=== PATIENT | male | born 1945 | race Hispanic/Latino ===

== ENCOUNTER 2017-02-12 13:49 | Inpatient (IN) | payer MEDICAID, SELFPAY ==
[2017-02-12] MEDS ORDERED: cloNIDine HCl 0.1 MG TAB ONE (14:18)
[2017-02-12] MEDS ORDERED: Oxymetazoline HCl 0.05% ( 15 ML ) ONE (15:03)
[2017-02-12 16:26] LABS: #Eosinphils 0.1 thou/uL (0.0-0.7); #Lymphocytes 1.2 thou/uL (1.20-3.40); #Monocytes 0.8 thou/uL (0.11-0.59); #Neutrophils 9.8 thou/uL (1.40-6.50); %Basophils 0.1 % (0.0-1.0); %Eosinophils 0.5 % (0.0-10.0); %Lymphocytes 9.9 % (21.0-51.0); Hematocrit 48.3 % (42.0-52.0); Mean Platelet Volume 9.1 fL (7.4-10.4); Red Blood Cell (RBC) Count 5.21 mill/uL (4.70-6.10); White Blood Cell (WBC) Count 11.9 thou/uL (4.8-10.8)
[2017-02-12 16:35] LABS: PTT 33.7 SEC (22.9-36.1); Prothrombin Time 16.3 SEC (12.0-14.7)
[2017-02-12 16:49] LABS: ALT (SGPT) 23 U/L (8-55); AST (SGOT) 25 U/L (5-34); Alkaline Phosphatase 96 U/L (40-150); Anion Gap 13 mmol/L (10-20); BUN (Urea Nitrogen) 22 mg/dL (8.4-25.7); Bilirubin, Total 0.4 mg/dL (0.2-1.2); CK (CPK) 112 U/L (30-200); Calc. Creatinine Clearance 0 mL/min (70-130); Calcium 8.6 mg/dL (7.8-10.44); Carbon Dioxide 22 mmol/L (23-31); Chloride 108 mmol/L (98-107); Estimated GFR-MDRD 71; Globulin 3.4 g/dL (2.4-3.5); Protein, Total 7.1 g/dL (5.8-8.1)
[2017-02-12 16:51] LABS: Troponin I Less than 0.010 ng/mL (< 0.028)
--- NOTE | 2017-02-12 18:26 | HP ---
REASON FOR ADMISSION: Hypertensive emergency and epistaxis. HISTORY OF PRESENT ILLNESS: The patient gives history of bleeding from his right nostril from 12 noon. This was profuse initially. He states he has started taking his blood pressure medications from the last 15 days and he is compliant with it. The at bedside shows me the bottles of medications that he has been taking. He has no complaints of chest pain, palpitation, PND, or orthopnea. Has not had any prior cardiac workup. He states he was diagnosed with hypertension 2 weeks back when he had similar episode of bleeding from his nose. PAST MEDICAL AND SURGICAL HISTORY: Hypertension from last 2 weeks with prior episode of hemoptysis 2 weeks back. No prior surgeries. CURRENT MEDICATIONS: Lisinopril 40 mg p.o. daily, Lopressor 50 mg p.o. twice daily. ALLERGIES: No known drug allergies. PERSONAL HISTORY: Does not abuse alcohol or drugs. No history of smoking. FAMILY HISTORY: Mother lived up to 78 years and father lived up to 76 years, they both of old age per patient. REVIEW OF SYSTEMS: The following complete review of systems was negative, unless otherwise mentioned in the HPI or below: Constitutional: Weight loss or gain, ability to conduct usual activities. Skin: Rash, itching. Eyes: Double vision, pain. ENT/Mouth: Nose bleeding, neck stiffness, pain, tenderness. Cardiovascular: Palpitations, dyspnea on exertion, orthopnea. Respiratory: Shortness of breath, wheezing, cough, hemoptysis, fever or night sweats. Gastrointestinal: Poor appetite, abdominal pain, heartburn, nausea, vomiting, constipation, or diarrhea. Genitourinary: Urgency, frequency, dysuria, nocturia. Musculoskeletal: Pain, swelling. Neurologic/Psychiatric: Anxiety, depression. Allergy/Immunologic: Skin rash, bleeding tendency. PHYSICAL EXAMINATION: GENERAL: The patient is a 71-year-old male who is currently not in any distress. His right nostril has been packed. VITAL SIGNS: Blood pressure on arrival was 226/125, pulse 86 per minute which is dipping down to 50s at present, respiratory rate 18 per minute, temperature 98 degrees Fahrenheit, saturating 98% on room air. NECK: Supple, no elevated JVD. EYES: Extraocular muscles intact. Pupils reacting to light. ORAL CAVITY: Mucous membranes are moist. No exudates or congestion. NOSE: Right nostril is packed. It is not bleeding currently. There is no postnasal bleed seen. CARDIOVASCULAR SYSTEM: S1, S2 heard. RESPIRATORY SYSTEM: Air entry 1+ bilaterally. No rales or rhonchi. ABDOMEN: Soft, bowel sounds heard. No tenderness, rigidity or guarding. EXTREMITIES: No peripheral edema or calf tenderness. VASCULAR SYSTEM: Peripheral pulses 1+ bilateral. No ischemic ulcerations or gangrene. CENTRAL NERVOUS SYSTEM: No gross focal deficits seen. Patient is alert, awake , oriented x3. PSYCHIATRIC SYSTEM: The patient's mood is euthymic. No hallucinations or delusions. LABORATORY DATA AND X-RAY FINDINGS: EKG done shows sinus bradycardia at 52 beats per minute with signs of LVH. White count of 11, hemoglobin and hematocrit 15 and 48, platelet count 192, MCV is 92 with 82% neutrophils. PT/ INR 16 and 1.3, PTT 33, serum bicarbonate 22, BUN 22, creatinine 1.0, glucose 129. Liver enzymes within normal limits. Cardiac enzymes first set is negative. Albumin is 3.7. CLINICAL IMPRESSION AND PLAN: The patient will be admitted to telemetry for hypertensive emergency with epistaxis. He has packing of his right nostril done in the ER here. He states he is compliant with his hypertensive medications, which was prescribed 2 weeks back. The plan is to optimize his medications, keeping in view of his heart rate in the 50s. We will obtain an echo with 2D Doppler for left ventricular function. We will place him on hydrochlorothiazide 25 mg daily and split his lisinopril 20 b.i.d. and continue Lopressor 50 mg p.o. b.i.d. We will continue to closely monitor him on telemetry. ENT consultation with Dr. Bernard will be obtained as well in view of recurrent nasal bleed. [facility]ITAL[facility]
[2017-02-12 19:06] VITALS: BMI 24.3
[2017-02-12] MEDS: Metoprolol Tartrate 50 MG TAB PO SCH (20:05)
[2017-02-12] MEDS: Famotidine 20 MG TAB PO SCH (20:05)
[2017-02-12] MEDS: Lisinopril 20 MG TAB PO SCH (20:06)
[2017-02-12] MEDS ORDERED: Amoxicillin/Potassium Clav 875 MG TAB PO SCH (23:00)
[2017-02-12] MEDS: Acetaminophen 325 MG TAB PO PRN (23:34)
[2017-02-13] MEDS: Sodium Chloride 0.9% 10 ML ONE ×2 (03:57→17:51)
[2017-02-13] MEDS: Hydrochlorothiazide 25 MG TAB PO SCH (03:59)
[2017-02-13 05:50] LABS: #Basophils 0.1 thou/uL (0.0-0.2); #Eosinphils 0.1 thou/uL (0.0-0.7); #Monocytes 0.9 thou/uL (0.11-0.59); #Neutrophils 11.2 thou/uL (1.40-6.50); %Basophils 0.4 % (0.0-1.0); %Eosinophils 0.7 % (0.0-10.0); %Monocytes 6.3 % (0.0-10.0); Hematocrit 49.5 % (42.0-52.0); Mean Platelet Volume 10.1 fL (7.4-10.4); Red Blood Cell (RBC) Count 5.33 mill/uL (4.70-6.10); White Blood Cell (WBC) Count 14.2 thou/uL (4.8-10.8)
--- NOTE | 2017-02-13 05:51 | CON ---
DATE OF CONSULTATION: 02/12/2017 REASON FOR CONSULTATION: Right-sided epistaxis. CONSULTING PHYSICIAN: Dr. Weir. HISTORY OF PRESENT ILLNESS: Mr. Harish Ray is a 71-year-old [place] male with a 2 week history of recurrent nosebleeds. He was seen in another ER about 2 weeks ago with his first nosebleed and was packed for 2 days and was diagnosed with hypertension and started on metoprolol and lisinopril. He denies any blood thinners or injuries to his nose. Does not have any previous history of nosebleeds or excessive bleeding or bruising. He has not had any recent surgery or infections. He was packed for 2 days and the packing was removed and apparently had some cauterization of the site for bleeding. He then presents today having started bleeding profusely around 10:30 a.m. and presented to the ER for further evaluation and treatment and was found to have a very elevated blood pressure and then had difficulty controlling within the ER. The epistaxis was controlled with a Rhino Rocket. This was left in place for a while and then removed, started bleeding again and another Rhino Rocket was placed and inflated. The bleeding has been controlled since the Rhino Rocket was placed and was admitted today for control of his blood pressure and further evaluation of his epistaxis. I was asked to evaluate further. Please see his admission history and physical for further details of the past medical history and review of systems reviewed on this date. PHYSICAL EXAMINATION: GENERAL: Well-developed, well-nourished [place] male in no acute distress. HEAD: Normocephalic, atraumatic. Eyes: Pupils are equal, round, and reactive to light. Extraocular movements are intact. EARS: Tympanic membranes intact, mobile, clear. NOSE: Shows a Rhino Rocket pack, it inflated in the right nostril that is fully inserted. There is no evidence of any bleeding or drainage around the anterior aspect of the nose, the left side of the nose looks open and clear. No bleeding was noted. ORAL CAVITY AND OROPHARYNX: Shows 2+ tonsils without exudate, erythema and no blood or postnasal drainage was noted. NECK: Without significant adenopathy or mass. Thyroid is palpably normal. LUNGS: Clear to auscultation. HEART: Rate and rhythm regular, without murmur or gallop. IMPRESSION: Right-sided epistaxis controlled with packing. He is having problems with his hypertension and was admitted for control in hypertension. At this point in time, I do not see a reason to remove the packing, it seems to be functioning and would recommend leaving it in for 4 days unless he starts having further bleeding or other problems, get his blood pressure under good control and we will plan on removing the packing in 4 days and reevaluate it. Would recommend Augmentin while the packing is in place to prevent the possibility of infection. MARK
[2017-02-13 06:12] LABS: Anion Gap 11 mmol/L (10-20); BUN (Urea Nitrogen) 20 mg/dL (8.4-25.7); Calc. Creatinine Clearance 82 mL/min (70-130); Calcium 9.1 mg/dL (7.8-10.44); Carbon Dioxide 23 mmol/L (23-31); Chloride 106 mmol/L (98-107); Cholesterol 170 mg/dl (< 200 Desired); Estimated GFR-MDRD Greater than 90; LDL Cholesterol, Calculated 110 mg/dL
[2017-02-13] MEDS: Lisinopril 20 MG TAB PO SCH ×2 (08:50→20:20)
[2017-02-13] MEDS: Famotidine 20 MG TAB PO SCH ×2 (08:50→20:20)
[2017-02-13] MEDS: Amoxicillin/Potassium Clav 875 MG TAB PO SCH ×2 (08:50→20:20)
[2017-02-13] MEDS: Metoprolol Tartrate 50 MG TAB PO SCH ×2 (08:51→20:20)
[2017-02-13] MEDS: Acetaminophen 325 MG TAB PO PRN (08:53)
--- NOTE | 2017-02-13 08:59 | PDOC.PN ---
- Subjective Encounter Start Date: 02/13/17 Encounter Start Time: 08:58 Subjective: mild BHAT - Objective MAR Reviewed: Yes Vital Signs & Weight: Vital Signs (12 hours) Temp Pulse Resp BP BP Pulse Ox 02/13/17 08:50 199/89 H 02/13/17 08:00 97.6 F 68 18 199/89 H 97 02/13/17 06:36 81 168/92 H 02/13/17 05:13 78 18 171/82 H 100 02/13/17 04:03 98 02/13/17 04:00 98.1 F 18 215/93 H 98 02/13/17 03:57 58 L 215/93 H 02/12/17 23:34 98 02/12/17 23:22 62 16 170/92 H 98 Weight Weight 143 lb I&O: 02/12/17 02/13/17 02/14/17 06:59 06:59 06:59 Intake Total 240 Output Total 360 Balance -120 Result Diagrams: 02/13/17 05:21 02/13/17 05:21 Phys Exam - Physical Examination Constitutional: NAD pack in R naries Neck: no JVD Respiratory: clear to auscultation bilateral Cardiovascular: RRR, no significant murmur Gastrointestinal: soft, non-tender, positive bowel sounds Musculoskeletal: no edema Dx/Plan (1) Hypertensive urgency Code(s): I16.0 - HYPERTENSIVE URGENCY Status: Acute (2) Epistaxis Code(s): R04.0 - Status: Acute - Plan cont to advance antihyprtensives -: add po apresoline -: cont bblocker, leandro * .
[2017-02-13] MEDS ORDERED: Labetalol HCl 100 MG/20 ML VIAL SLOW IVP PRN (17:05)
[2017-02-14] MEDS ORDERED: Sodium Chloride 0.9% 10 ML ONE (01:51)
[2017-02-14] MEDS: Acetaminophen 325 MG TAB PO PRN (01:57)
[2017-02-14 08:43] VITALS: BP 156/79; TEMP 98.2
[2017-02-14] MEDS: Hydrochlorothiazide 25 MG TAB PO SCH (09:03)
[2017-02-14] MEDS: Amoxicillin/Potassium Clav 875 MG TAB PO SCH (09:03)
[2017-02-14] MEDS: Lisinopril 20 MG TAB PO SCH (09:03)
[2017-02-14] MEDS: Metoprolol Tartrate 50 MG TAB PO SCH (09:03)
[2017-02-14] MEDS: Famotidine 20 MG TAB PO SCH (09:32)
--- NOTE | 2017-02-14 10:19 | DIS ---
DATE OF ADMISSION: 02/12/2017 DATE OF DISCHARGE: 02/14/2017 TRANSFER OF CARE He is followed at what he and his family called clinic. DISPOSITION: Discharged to home. The patient presented to the emergency room with gross epistaxis, hypertensive emergency. His nose was packed in the emergency room. He was admitted to the hospital. He was seen in consultation by Michael Bernard, who stated he needed the packing for 4 days before removal and to be on antibiotics during it. His white count was 11.9 and 14.2, hemoglobin 15.8 and 16.1, platelet count 192,000 and 169,000. Comp metabolic profile was really essentially unremarkable. He had no further bleeding du ring his hospital stay. His lisinopril and metoprolol were continued. Apresoline was added. His b lood pressure is now under control, 156/79. He is desirous of being discharged. He is being discha rged to follow up in 02/16/2017 in the [facility] to have the pack removed to shaq medina up with clinic in 7 days. CODE STATUS: FULL. PENDING AT THE TIME OF DISCHARGE: There is really nothing pending at the time of discharge. DISCHARGE MEDICATIONS: Apresoline 25 mg twice a day, lisinopril 40 mg a day, metoprolol 50 mg twice a day. ALLERGIES: No known drug allergies. PROCEDURES: No procedures were done.
== END 2017-02-14 11:21 | disposition home or self-care (01) | DRG 305 ==
LOC: ERS 13:49 → 2NO 17:12
PROVIDERS: ADMIT Internal Medicine; ATTEND Internal Medicine
DX: I16.1 Hypertensive emergency (principal); R04.0 Epistaxis; I10 Essential (primary) hypertension
CPT/HCPCS: 36415; 80048; 80053; 80061; 82553; 84484; 85025; 85610; 85730; 93005; 93306; 94760; 96374; A4216; J0360

== ENCOUNTER 2017-02-16 10:15 | Emergency (ER) | payer MEDICAID, SELFPAY ==
[2017-02-16] MEDS ORDERED: Oxymetazoline HCl 0.05% ( 15 ML ) ONE (11:32)
== END 2017-02-16 12:39 | disposition home or self-care (01) ==
LOC: ERS 10:15
DX: R04.0 Epistaxis (principal); I10 Essential (primary) hypertension
CPT/HCPCS: 99283